=== PATIENT | male | born 1955 | race Caucasian/White ===

== ENCOUNTER 2020-06-14 13:21 | Outpatient (CLI) | payer MEDICARE ==
--- NOTE | 2020-06-14 17:37 | CT ---
CT NECK SOFT TISSUES WITH CONTRAST: DATE: 06/14/2020. HISTORY: A 64-year-old male with vocal cord paralysis. FINDINGS: There are several small calcifications in the right, and 1 on the left, faucial (palatine) tonsils. No difference in sizes between the right and left faucial tonsils. Small, round 5 mm cystic lesion a rising from the right lingual tonsil, contacting the right superior tip of the epiglottis, nonspecifi c, perhaps a mucous retention cyst. Medialization of the right vocal cord, and mild asymmetry of the right cricoarytenoid joint, consiste nt with the stated history of right vocal cord paralysis. No mass identified in the neck or upper me diastinum. Submandibular, parotid, carotid, parapharyngeal, perivertebral, manager of information, retropharyngeal, and post erior cervical spaces. Unremarkable thyroid gland. There are several levels of degenerative disk di sease in the lower cervical spine, and regions of bilateral upper and mid facet DJD. IMPRESSION: 1. Evidence for right vocal cord paralysis. 2. No cause of the vocal cord paralysis identified. 3. Cervical spondylosis. POS: [facility]
--- NOTE | 2020-06-14 20:43 | CT ---
CT OF THE THORAX UTILIZING IV CONTRAST: Date: 06/14/2020 INDICATION: History of vocal cord paralysis and hoarseness. FINDINGS: There is moderate to severe centrilobular and paraseptal emphysema. There is a region of scar-like and mass-like opacity within the superior segment of the right lower l obe causing some retraction of the right major fissure measuring 2.2 x 7.7 cm. There is additional gr ound-glass pulmonary nodule opacity within the superior segment of the right lower lobe on image 53 o f series 3 measuring 5.0 mm. There is some tree-in-bud type nodularity within the posterior segment o f the right upper lobe. One of the larger nodular opacities measures 7.6 mm. No suspicious pulmonary nodule or mass is identified within the left lung. There are calcified lymph nodes seen within the right hilar regions. No pathologically enlarged lymph node is evident. No definite mass is seen along the course of the recurrent laryngeal nerve. Heart s ize is within normal limits. Visualized upper abdomen reveals small cysts involving the left kidney. There are surgical clips with in the upper abdomen near the gastric antrum which is nonspecific. No definite acute osseous abnormality is evident. There is scattered degenerative and osteoarthritic change. No definite destructive osteolytic or osteoblastic lesion is identified. IMPRESSION: 1. Region of scar-like/mass-like opacity in the superior segment of the right lower lobe is nonspeci fic. This could reflect an area of parenchymal scarring; however, an area of recurrent malignancy in this location cannot be entirely excluded. Correlation with prior CTs of the chest may be helpful. Al ternatively, PET/CT may be helpful for further characterization. 2. No definite mass-like opacity seen along the course of the recurrent laryngeal nerve. 3. Tree-in-bud type nodularity involving the posterior segment of the right lobe suspicious for bron chiolitis. Recommend appropriate therapy and follow-up CT in 6-8 weeks to document resolution. 4. Scattered emphysema. 5. Findings of prior granulomatous disease. 6. Left renal cysts. POS: [facility]
== END 2020-06-14 13:22 | disposition home or self-care (01) ==
LOC: BICCT 13:21
PROVIDERS: ATTEND Student in an Organized Health Care Education/Training Program
DX: J38.01 Paralysis of vocal cords and larynx, unilateral (principal); M47.812 Spondylosis without myelopathy or radiculopathy, cervical region; J43.2 Centrilobular emphysema; N28.1 Cyst of kidney, acquired
CPT/HCPCS: 70491; 71260; 82565

== ENCOUNTER 2020-06-28 07:40 | Outpatient (CLI) | payer MEDICARE, OTHER ==
[2020-06-28 11:55] LABS: Hemoglobin 17.3 g/dL (14.0-18.0)
[2020-06-28 12:56] LABS: Anion Gap 14 mmol/L (10-20); BUN (Urea Nitrogen) 17 mg/dL (8.4-25.7); Calc. Creatinine Clearance 0 mL/min (70-130); Calcium 9.2 mg/dL (7.8-10.44); Carbon Dioxide 26 mmol/L (23-31); Chloride 103 mmol/L (98-107); Estimated GFR-MDRD 58; Glucose 121 mg/dL (80-115); Potassium 4.8 mmol/L (3.5-5.1); Sodium 138 mmol/L (136-145)
[2020-06-28 18:55] LABS: SARS-CoV-2 MS2 Positive; SARS-CoV-2 N Gene Positive; SARS-CoV-2 S Gene Positive; SARS-CoV-2 by NAA DETECTED (NotDetected); SARS-CoV-2 orf1ab Positive
--- NOTE | 2020-06-30 16:50 | EKG ---
Test Reason : Blood Pressure : / mmHG Vent. Rate : 057 BPM Atrial Rate : 057 BPM P-R Int : 180 ms QRS Dur : 080 ms QT Int : 420 ms P-R-T Axes : 072 082 066 degrees QTc Int : 408 ms Sinus bradycardia Otherwise normal ECG Confirmed by DR. Bing VICK ([id number]) on 06/30/2020 4:49:46 PM Referred By: MIKE Confirmed By:DR. Bing VICK
== END 2020-06-28 07:41 | disposition home or self-care (01) ==
LOC: LABBT 07:40
PROVIDERS: ATTEND Student in an Organized Health Care Education/Training Program
DX: U07.1 COVID-19 (principal); Z01.818 Encounter for other preprocedural examination; J38.00 Paralysis of vocal cords and larynx, unspecified; K21.9 Gastro-esophageal reflux disease without esophagitis
CPT/HCPCS: 80048; 85014; 85018; 93005; U0003; 87635; 93010

== ENCOUNTER 2020-07-10 05:36 | Day surgery (SDC) | payer MEDICARE ==
[2020-07-09 12:39] VITALS: BMI 25.5
[2020-07-10] MEDS ORDERED: EPINEPHrine 1 MG/ML AMP ONE (06:38)
[2020-07-10] MEDS ORDERED: Fentanyl 100 MCG/2 ML VIAL ONE (06:43)
[2020-07-10] MEDS ORDERED: Lidocaine 4% Topical Sol 50 ML BOT ONE (06:44)
[2020-07-10] MEDS ORDERED: Albuterol Sulfate HFA (OR ONLY) ONE ×2 (06:44)
[2020-07-10] MEDS ORDERED: Acetaminophen 500 MG TAB ONE (07:24)
[2020-07-10] MEDS ORDERED: Propofol 500 MG/50 ML VIAL ONE (07:31)
[2020-07-10] MEDS ORDERED: Dexamethasone 20 MG/5 ML VIAL ONE (08:42)
[2020-07-10] MEDS ORDERED: Ondansetron PF 4 MG/2 ML Vial ONE (08:42)
[2020-07-10] MEDS ORDERED: Glycopyrrolate 0.2 MG/ML 5 ML SYRINGE ONE (08:42)
[2020-07-10] MEDS ORDERED: EPHEDRINE 25 MG/5 ML SYRINGE ONE (08:42)
[2020-07-10] MEDS ORDERED: PROPOFOL 200 MG/20 ML VIAL ONE (08:42)
[2020-07-10] MEDS ORDERED: Lidocaine 1% PF 5 ML VIAL ONE (08:42)
[2020-07-10] MEDS ORDERED: Rocuronium Bromide 10 MG/ML (10ML VIAL) ONE (08:42)
--- NOTE | 2020-07-11 13:47 | OP ---
DATE OF PROCEDURE: 07/10/2020 PREOPERATIVE DIAGNOSES: Right true vocal fold paralysis, hoarseness, dysphagia, and aspiration. POSTOPERATIVE DIAGNOSES: Right true vocal fold paralysis, hoarseness, dysphagia, and aspiration. PROCEDURE PERFORMED: Direct laryngoscopy with operative telescope, and injection laryngoplasty. PERMIT: Procedure benefits, risks including those of bleeding, infection, injury from anesthesia, allergic reaction, scarring and damage to airway necessitating revision and/or repair and alternatives were reviewed with the patient and family who expressed understanding of the information. The consent form was signed and witnessed and a paper copy of the consent form is available for review in the paper chart. INDICATIONS: A 64-year-old male patient presenting with one year of hoarseness, dysphagia and occasional aspiration presenting for evaluation, found to have a paralyzed right true vocal fold without radiographic evidence of etiology and the patient is brought to the operating room now for operative intervention. BLOCK OPERATOR: None. FINDINGS: Normal laryngeal anatomy with right paralyzed true vocal fold. DESCRIPTION OF OPERATION: The patient was identified in the preoperative holding area and brought back to the operating room where surgical time-out was completed. General endotracheal anesthesia was achieved with microlaryngeal endotracheal tube and the patient was positioned and head of the bed was turned 90 degrees to the left. Next, the Dedo laryngoscope was used to examine the glottis. Upon good visualization the laryngoscope was suspended and a 0-degree endoscope was used for evaluation of the patient's larynx and attention was turned to the right true vocal fold and approximately 1 mL of Prolaryn Plus was injected in the ventricular space into the paravocal fold tissue in order to achieve good volume and medialization of the vocal fold. Once this was achieved, the needle was removed and the 0-degree endoscope was used to evaluate the area and suction a small amount of bleeding which was seen and then the telescope was removed and the patient was taken out of suspension and the laryngoscope removed as well as the dental guard and the patient was found to tolerate the procedure well without complications. The patient was turned back to anesthesia for emergence. There were no complications and the patient tolerated the procedure well. Job ID: [id number]
== END 2020-07-10 10:05 | disposition home or self-care (01) ==
LOC: SDC 05:36
PROVIDERS: ATTEND Student in an Organized Health Care Education/Training Program
PROC: 3E0F8GC Introduction of Other Therapeutic Substance into Respiratory Tract, Via Natural or Artificial Opening Endoscopic (ICD-10-PCS; principal; 2020-07-10)
DX: J38.01 Paralysis of vocal cords and larynx, unilateral (principal); I10 Essential (primary) hypertension; E78.5 Hyperlipidemia, unspecified; Z79.82 Long term (current) use of aspirin; Z79.899 Other long term (current) drug therapy; Z87.891 Personal history of nicotine dependence
CPT/HCPCS: J0171; J1100; J2405; J2704; J3010

== ENCOUNTER 2021-05-07 11:17 | Outpatient (CLI) | payer MEDICARE ==
[2021-05-07] MEDS ORDERED: Iopamidol 370 76% 100 ML VIAL ONE (13:32)
== END 2021-05-07 11:18 | disposition home or self-care (01) ==
LOC: CT 11:17
PROVIDERS: ATTEND Student in an Organized Health Care Education/Training Program
DX: J38.00 Paralysis of vocal cords and larynx, unspecified (principal); J98.4 Other disorders of lung
CPT/HCPCS: 70470; 70491; 71260; 82565; Q9967

== ENCOUNTER 2021-07-10 14:45 | Inpatient (IN) | payer MEDICARE ==
[2021-07-10 15:18] VITALS: BMI 25.5
[2021-07-11] MEDS ORDERED: Lidocaine 1% w/Epinephrine 1:100K 20 ML VIAL ONE (10:35)
[2021-07-11] MEDS ORDERED: Fentanyl 100 MCG/2 ML VIAL ONE ×2 (10:38→13:41)
[2021-07-11] MEDS ORDERED: Famotidine/PF 20 mg/2ml Vial ONE (10:38)
[2021-07-11] MEDS ORDERED: SUGAMMADEX SODIUM 200 MG/2 ML VIAL ONE (11:55)
[2021-07-11] MEDS ORDERED: Ondansetron PF 4 MG/2 ML Vial ONE (12:06)
[2021-07-11] MEDS ORDERED: PHENYLEPHRINE-NS 100 MCG/ML 10 ML SYRINGE ONE (12:06)
[2021-07-11] MEDS ORDERED: PROPOFOL 200 MG/20 ML VIAL ONE (12:06)
[2021-07-11] MEDS ORDERED: Dexamethasone 20 MG/5 ML VIAL ONE (12:06)
[2021-07-11] MEDS ORDERED: Lidocaine 1% PF 5 ML VIAL ONE (12:06)
[2021-07-11] MEDS ORDERED: Metoclopramide HCl 10 MG/2 ML VIAL ONE (12:06)
[2021-07-11] MEDS ORDERED: Succinylcholine 200 MG/10 ml SYRINGE FS ONE (12:06)
[2021-07-11] MEDS ORDERED: Rocuronium Bromide 10 MG/ML (10ML VIAL) ONE (12:06)
[2021-07-11] MEDS ORDERED: Promethazine HCl 25 MG/ML VIAL IM PRN (13:35)
[2021-07-11] MEDS ORDERED: Ketorolac Tromethamine 30 MG/ML VIAL IVP PRN (13:35)
[2021-07-11] MEDS ORDERED: Promethazine HCl 25 MG/ML VIAL IVPB PRN (13:35)
[2021-07-11] MEDS ORDERED: Ondansetron HCl/PF 4 MG/2 ML Vial IVP PRN (13:35)
[2021-07-11] MEDS ORDERED: HYDROcodone/Acetaminophen 5/325 mg Tablet PO PRN ×2 (14:20)
[2021-07-11] MEDS: Lactated Ringer's 1,000 ML IV SCH (14:30)
[2021-07-11] MEDS ORDERED: Labetalol HCl 100 MG/20 ML VIAL SLOW IVP PRN (15:35)
[2021-07-11] MEDS ORDERED: hydrALAZINE 20 MG/ML VIAL SLOW IVP PRN (15:35)
[2021-07-11 16:47] VITALS: BP 172/102
[2021-07-11] MEDS ORDERED: Lorazepam 1 MG TAB ONE (21:56)
[2021-07-11] MEDS ORDERED: Morphine 4 MG/ML VIAL ONE (21:57)
[2021-07-11] MEDS ORDERED: Lorazepam 2 MG/ML VIAL ONE (21:57)
[2021-07-11] MEDS ORDERED: Lorazepam 2 MG/ML VIAL SLOW IVP PRN (22:51)
[2021-07-12 04:32] LABS: Band 14 % (5-11); Hemoglobin 15.6 g/dL (14.0-18.0); Lymphocytes 5 % (21-51); MDiff Complete? YES; Mean Corpuscular HGB CONC 33.4 g/dL (32.0-36.0); Mean Corpuscular Hemoglobin 31.9 pg (27.0-31.0); Mean Corpuscular Volume 95.5 fL (78.0-98.0); Mean Platelet Volume 10.2 fL (7.4-10.4); Monocytes 4 % (0-10); Neutrophil 77 % (42-75); Platelet Count 182 thou/uL (130-400); Platelet Morphology Comment Appears Adequate; RBC Distribution Width 12.6 % (11.5-14.5); RBC Morphology Normal; White Blood Cell (WBC) Count 22.8 thou/uL (4.8-10.8)
[2021-07-12 04:41] LABS: ALT (SGPT) 24 U/L (8-55); AST (SGOT) 32 U/L (5-34); Albumin 3.8 g/dL (3.4-4.8); Alkaline Phosphatase 91 U/L (40-110); Anion Gap 15 mmol/L (10-20); BUN (Urea Nitrogen) 21 mg/dL (8.4-25.7); Bilirubin, Total 0.8 mg/dL (0.2-1.2); Calc. Creatinine Clearance 87 mL/min (70-130); Calcium 9.5 mg/dL (7.8-10.44); Carbon Dioxide 27 mmol/L (23-31); Chloride 104 mmol/L (98-107); Globulin 2.6 g/dL (2.4-3.5); Glucose 137 mg/dL (80-115); Phosphorus 4.1 mg/dL (2.3-4.7); Potassium 4.8 mmol/L (3.5-5.1); Protein, Total 6.4 g/dL (5.8-8.1); Sodium 141 mmol/L (136-145)
[2021-07-12] MEDS: VANCOMYCIN 2 GRAM/400 ML BAG 2 GM in Premix Bag 1 BAG IVPB SCH (08:59)
[2021-07-12] MEDS: Pantoprazole 40 MG VIAL IVP SCH (09:10)
[2021-07-12] MEDS ORDERED: LIDOCAINE 4% Topical Sol 4 ML SOLN.PK.G. TP PRN (11:24)
[2021-07-12] MEDS ORDERED: Lidocaine 4% Topical Sol 50 ML BOT TOP PRN (11:45)
[2021-07-12] MEDS: Lactated Ringer's 1,000 ML IV SCH ×2 (13:14→17:27)
[2021-07-12] MEDS: Azithromycin 250 MG in Sodium Chloride 0.9% 250 ML 250 ML IVPB SCH (13:26)
[2021-07-12] MEDS: Morphine 4 MG/ML VIAL SLOW IVP PRN (14:24)
[2021-07-12] MEDS: Azelastine 137 MCG/Spray 30 ML NS SCH (14:41)
[2021-07-13] MEDS: Lactated Ringer's 1,000 ML IV SCH ×4 (02:12→21:43)
[2021-07-13] MEDS: Morphine 4 MG/ML VIAL SLOW IVP PRN ×2 (02:12→21:43)
[2021-07-13] MEDS: VANCOMYCIN 2 GRAM/400 ML BAG 2 GM in Premix Bag 1 BAG IVPB SCH (09:00)
[2021-07-13] MEDS: Azelastine 137 MCG/Spray 30 ML NS SCH (10:14)
[2021-07-13] MEDS: Pantoprazole 40 MG VIAL IVP SCH (10:15)
[2021-07-13] MEDS: Enoxaparin Sodium 40 MG/0.4 ML SYRINGE SC SCH (10:15)
[2021-07-13] MEDS: Azithromycin 250 MG in Sodium Chloride 0.9% 250 ML 250 ML IVPB SCH (12:00)
[2021-07-14] MEDS: Pantoprazole 40 MG VIAL IVP SCH (09:02)
[2021-07-14] MEDS: Enoxaparin Sodium 40 MG/0.4 ML SYRINGE SC SCH (09:03)
[2021-07-14] MEDS: Azelastine 137 MCG/Spray 30 ML NS SCH (09:05)
[2021-07-14] MEDS: Lactated Ringer's 1,000 ML IV SCH (09:05)
[2021-07-14] MEDS: Azithromycin 250 MG in Sodium Chloride 0.9% 250 ML 250 ML IVPB SCH (12:35)
[2021-07-14] MEDS ORDERED: Scopolamine 1.5 mg/72 hour Patch TD SCH (13:30)
[2021-07-14] MEDS: Morphine 4 MG/ML VIAL SLOW IVP PRN (21:54)
[2021-07-15] MEDS: Azelastine 137 MCG/Spray 30 ML NS SCH (09:09)
[2021-07-15] MEDS: Pantoprazole 40 MG VIAL IVP SCH (09:12)
[2021-07-15] MEDS: Enoxaparin Sodium 40 MG/0.4 ML SYRINGE SC SCH (09:12)
[2021-07-15] MEDS: Azithromycin 250 MG in Sodium Chloride 0.9% 250 ML 250 ML IVPB SCH (12:52)
[2021-07-15] MEDS ORDERED: Senokot S 8.6-50 MG TAB ONE (22:09)
[2021-07-15] MEDS ORDERED: Scopolamine 1.5 mg/72 hour Patch ONE (22:09)
[2021-07-15] MEDS: Morphine 4 MG/ML VIAL SLOW IVP PRN (22:14)
[2021-07-15] MEDS ORDERED: Scopolamine 1.5 mg/72 hour Patch TD SCH (22:30)
[2021-07-16] MEDS: Pantoprazole 40 MG VIAL IVP SCH (08:03)
[2021-07-16] MEDS: Enoxaparin Sodium 40 MG/0.4 ML SYRINGE SC SCH (08:03)
[2021-07-16] MEDS: Azelastine 137 MCG/Spray 30 ML NS SCH ×2 (08:15→08:30)
[2021-07-16] MEDS: Azithromycin 250 MG in Sodium Chloride 0.9% 250 ML 250 ML IVPB SCH (12:49)
[2021-07-16] MEDS: Morphine 4 MG/ML VIAL SLOW IVP PRN (21:05)
[2021-07-17 04:18] LABS: Anion Gap 12 mmol/L (10-20); BUN (Urea Nitrogen) 20 mg/dL (8.4-25.7); Calc. Creatinine Clearance 0 mL/min (70-130); Calcium 9.4 mg/dL (7.8-10.44); Carbon Dioxide 27 mmol/L (23-31); Chloride 106 mmol/L (98-107); Glucose 112 mg/dL (80-115); Potassium 4.4 mmol/L (3.5-5.1); Sodium 141 mmol/L (136-145)
[2021-07-17 04:47] LABS: Eosinophils 3 % (0-10); Hemoglobin 14.4 g/dL (14.0-18.0); Lymphocytes 24 % (21-51); MDiff Complete? YES; Mean Corpuscular HGB CONC 34.3 g/dL (32.0-36.0); Mean Corpuscular Hemoglobin 32.1 pg (27.0-31.0); Mean Corpuscular Volume 93.8 fL (78.0-98.0); Mean Platelet Volume 10.1 fL (7.4-10.4); Monocytes 7 % (0-10); Neutrophil 62 % (42-75); Platelet Count 187 thou/uL (130-400); Platelet Morphology Comment Appears Adequate; RBC Distribution Width 12.1 % (11.5-14.5); RBC Morphology Normal; Reactive Lymphocytes 4 % (0-10); Red Blood Cell (RBC) Count 4.49 mill/uL (4.70-6.10); White Blood Cell (WBC) Count 12.8 thou/uL (4.8-10.8)
[2021-07-17 07:43] VITALS: TEMP 98.3
[2021-07-17] MEDS: Enoxaparin Sodium 40 MG/0.4 ML SYRINGE SC SCH (07:43)
[2021-07-17] MEDS: Azelastine 137 MCG/Spray 30 ML NS SCH (07:43)
[2021-07-17] MEDS: Pantoprazole 40 MG VIAL IVP SCH (07:43)
== END 2021-07-17 12:10 | disposition home or self-care (01) | DRG 13 ==
LOC: EDSTATUS 14:45 → SURG A 07-11 09:21 → CCU 07-11 14:45 → IMCU/EMU 07-13 20:14
PROVIDERS: ADMIT Student in an Organized Health Care Education/Training Program; ATTEND Student in an Organized Health Care Education/Training Program
PROC: 0B110F4 Bypass Trachea to Cutaneous with Tracheostomy Device, Open Approach (ICD-10-PCS; principal; 2021-07-11)
PROC: 0C7S8ZZ Dilation of Larynx, Via Natural or Artificial Opening Endoscopic (ICD-10-PCS; 2021-07-11)
DX: J38.02 Paralysis of vocal cords and larynx, bilateral (principal); I10 Essential (primary) hypertension; J40 Bronchitis, not specified as acute or chronic; Z20.822 Contact with and (suspected) exposure to COVID-19
CPT/HCPCS: 36415; 70551; 71046; 80048; 80053; 82164; 82306; 83520; 83735; 84075; 84100; 85007; 85025; 85027; 86256; 93005; 93010; 94640; C9113; J0360; J0456; J1100; J1650; J2060; J2270; J2405; J2704; J2765; J3010; J3370; J7050; J7120; S0028; U0003; U0005